=== PATIENT | female | born 1955 | race Caucasian/White ===

== ENCOUNTER 2018-05-29 16:38 | Emergency (ER) | payer OTHER ==
[2018-05-29 17:03] VITALS: BMI 26.6
--- NOTE | 2018-05-29 17:21 | PDOC ---
Attending Attestation - HPI HPI: 05/29/18 17:39 The patient is a 62 year old female, with a significant past medical history of GERD and chronic constipation, who presents to the emergency department today complaining of chest pain, jaw pain, and nausea, for one day. The patient reports she experienced a sudden sharp nonradiating midsternal chest pain while she was walking into her doctors office today. 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. She denies recent fevers, chills, headache or dizziness. She denies vomiting and diarrhea. She denies recent dysuria, frequency, urgency or hematuria. She denies diaphoresis, palpitations, or shortness of breath. Allergies: NKA Past surgical history: Meniscus repair and Rotator cuff repair. Social History: Tobacco use (4 per day for 40+ years). Denies EtOH use and recreational drug use. Family hx: Brother had gastric bypass surgery. Primary Care Physician: Dr. Richard Agudelo GI: Dr. De Anda - Physicial Exam PE: 05/29/18 17:42 GENERAL: Well-appearing, well-nourished. No apparent distress. HEENT: Normocephalic, atraumatic. CARDIOVASCULAR: Normal S1, S2. Regular rate and rhythm. PULMONARY: Clear to auscultation bilaterally. ABDOMEN: Soft, non-distended. +epigastric discomfort. EXTREMITIES: Normal ROM in all four extremities. No gross deformities. SKIN: Warm, dry. No rash NEUROLOGICAL: No focal neurological deficits. <Maribel Bello - Last Filed: 05/29/18 17:54> - Resident Resident Name: Kennedi Urrutia - ED Attending Attestation I have performed the following: I have examined & evaluated the patient, The case was reviewed & discussed with the resident, I agree w/resident's findings & plan, Exceptions are as noted - Medical Decision Making 05/29/18 18:22 Patient developed epigastric, midsternal chest pain range. Her jaw is Dr. he, no wheeze office. She was given a baby aspirin, sublingual nitroglycerin, and Nexium. She reported a mild headache after the nitroglycerin. She complaining of a chest pressure 3 out of 10. Long-standing history of a fracture recurred and she states that she sees Dr. De Anda for this. Social history retired RN, tobacco use for 40 years,denies 05/29/18 19:30 EKG was normal sinus rhythm at 92 bpm, normal QTC, no evidence of ST elevations or ST depressions, no evidence of ischemia. First troponin was negative. - medications for GERD symptoms were ordered but the pt refused them because she felt it would cause some diarrhea 05/29/18 20:35 cxr naps pt refused to stay for second troponin and signed out AMA <Theresa Cisneros - Last Filed: 05/29/18 20:35> Attestations - Attestations 05/29/18 17:51 Documentation prepared by Maribel Bello, acting as medical records clerk for Theresa Cisneros MD. <Maribel Bello - Last Filed: 05/29/18 17:54>
[2018-05-29] MEDS ORDERED: MAG HYDROX/AL HYDROX/SIMETH 30 ML UNIT-DOSE CUP PO ONE (17:23)
[2018-05-29] MEDS ORDERED: LIDOCAINE VISCOUS 2% ORAL/TOP 20 ML UNIT-DOSE CUP MM ONE (17:23)
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
[2018-05-29] MEDS ORDERED: RANITIDINE HCL 150 MG/10 ML UNIT-DOSE PO ONE (17:24)
[2018-05-29] MEDS ORDERED: LIDOCAINE VISCOUS 2% ORAL/TOP 20 ML UNIT-DOSE CUP ONE (17:29)
[2018-05-29] MEDS ORDERED: MAG HYDROX/AL HYDROX/SIMETH 30 ML UNIT-DOSE CUP ONE (17:29)
[2018-05-29 17:49] LABS: BASO % 0.9 % (0-2.0); EOS % 3.4 % (0-4.5); HEMATOCRIT 38.3 % (32.4-45.2); HEMOGLOBIN 12.9 GM/dL (10.7-15.3); LYMPH % 28.6 % (8-40); MCH 31.4 pg (25.7-33.7); MCHC 33.8 g/dl (32.0-36.0); MEAN CELL VOLUME 92.9 fl (80-96); MEAN PLT VOLUME 7.4 fl (7.5-11.1); MONO % 4.9 % (3.8-10.2); NEUT % 62.2 % (42.8-82.8); PLATELET COUNT 332 K/MM3 (134-434); RBC 4.13 M/mm3 (3.60-5.2); RDW 14.8 % (11.6-15.6); WHITE BLOOD COUNT 8.6 K/mm3 (4.0-10.0)
[2018-05-29 18:06] VITALS: BP 134/90; PULSE 89; TEMP 98.4
[2018-05-29 18:11] LABS: ALBUMIN 3.8 g/dl (3.4-5.0); ALK PHOS 87 U/L (45-117); ANION GAP 6 MMOL/L (8-16); BILIRUBIN,TOTAL 0.2 mg/dL (0.2-1); BLOOD UREA NITROGEN 18 mg/dL (7-18); CHLORIDE 105 mmol/L (98-107); CO2 29 mmol/L (21-32); CREATININE 0.7 mg/dL (0.55-1.3); GLUCOSE,RANDOM 101 mg/dL (74-106); MAGNESIUM 2.1 mg/dL (1.8-2.4); PHOSPHOROUS 4.1 mg/dL (2.5-4.9); POTASSIUM 4.8 mmol/L (3.5-5.1); SGOT/AST 13 U/L (15-37); SGPT/ALT 23 U/L (13-61); SODIUM 139 mmol/L (136-145); TOT PROT 7.7 g/dl (6.4-8.2)
--- NOTE | 2018-05-30 16:56 | EKG ---
Test Reason : Blood Pressure : / mmHG Vent. Rate : 092 BPM Atrial Rate : 092 BPM P-R Int : 174 ms QRS Dur : 090 ms QT Int : 370 ms P-R-T Axes : 064 021 037 degrees QTc Int : 457 ms NORMAL SINUS RHYTHM NONSPECIFIC ST ABNORMALITY BORDERLINE ECG Confirmed by MD SAWYER, BABATUNDE ([id number]) on 05/30/2018 4:56:07 PM Referred By: Confirmed By:BABATUNDE JACQUES MD
== END 2018-05-29 20:34 | disposition left against medical advice (07) ==
LOC: JER 16:38 → SUPCPDRO 16:38 → JER 20:34
DX: R07.9 Chest pain, unspecified (principal); K21.9 Gastro-esophageal reflux disease without esophagitis; K59.04 Chronic idiopathic constipation
CPT/HCPCS: 36415; 71046-TC-FY; 80053; 83735; 84100; 84484; 85025; 93005; 93010; 99285-25